=== PATIENT | female | born 1990 | race Caucasian/White ===

== ENCOUNTER 2016-10-25 03:52 | Emergency (ER) | payer SELFPAY ==
[2016-10-25 03:58] VITALS: BP 107/74; PULSE 86; RESP 16; TEMP 98.1; O2SAT 95
--- NOTE | 2016-10-25 04:20 | EDPHY ---
H & P Stated Complaint: rashes on RUE and abd x several days Time Seen by Provider: 10/25/16 04:04 HPI/ROS: CHIEF COMPLAINT: Rash HISTORY OF PRESENT ILLNESS: Patient is a 26-year-old homeless female who comes to the emergency department complaining of a dry scaly rash to her right antecubital region and around her umbilicus. They both began a few weeks ago. She has not had a fever. They are pruritic. No sick contacts. REVIEW OF SYSTEMS: Constitutional: denies: chills, fever, recent illness, recent injury EENTM: denies: blurred vision, double vision, nose congestion Respiratory: denies: cough, shortness of breath Cardiac: denies: chest pain, irregular heart rate, lightheadedness, palpitations Gastrointestinal/Abdominal: denies: abdominal pain, diarrhea, nausea, vomiting, blood streaked stools Genitourinary: denies: dysuria, frequency, hematuria, pain Musculoskeletal: denies: joint pain, muscle pain Skin: See HPI Neurological: denies: headache, numbness, paresthesia, tingling, dizziness, weakness Hematologic/Lymphatic: denies: blood clots, easy bleeding, easy bruising Immunologic/allergic: denies: HIV/AIDS, transplant EXAM: GENERAL: Disheveled, well-nourished and in no acute distress. HEAD: Atraumatic, normocephalic. EYES: Pupils equal round and reactive to light, extraocular movements intact, sclera anicteric, conjunctiva are normal. ENT: TMs normal, nares patent, oropharynx clear without exudates. Moist mucous membranes. NECK: Normal range of motion, supple without lymphadenopathy or JVD. LUNGS: Breath sounds clear to auscultation bilaterally and equal. No wheezes rales or rhonchi. HEART: Regular rate and rhythm without murmurs, rubs or gallops. ABDOMEN: Soft, nontender, normoactive bowel sounds. No guarding, no rebound. No masses appreciated. BACK: No CVA tenderness, no spinal tenderness, step-offs or deformities EXTREMITIES: Normal range of motion, no pitting or edema. No clubbing or cyanosis. NEUROLOGICAL: Cranial nerves II through XII grossly intact. Normal speech, normal gait. 5/5 strength, normal movement in all extremities, normal sensation PSYCH: Normal mood, normal affect. SKIN: Dry scaly rash to right antecubital region and periumbilical. Excoriated , no cellulitis or abscess. Source: Patient Exam Limitations: No limitations - Personal History LMP (Females 10-55): 8-14 Days Ago Current Tetanus/Diphtheria Vaccine: Yes - Medical/Surgical History Hx Asthma: Yes Hx Chronic Respiratory Disease: No Hx Diabetes: No Hx Cardiac Disease: No Hx Renal Disease: No Hx Cirrhosis: No Hx Alcoholism: No Hx HIV/AIDS: Yes Hx Splenectomy or Spleen Trauma: No Other PMH: PMHx: denies. PSHx: 2 c sections, cyst removal - Family History Significant Family History: No pertinent family hx - Social History Smoking Status: Never smoked Alcohol Use: Sober Drug Use: Marijuana Constitutional: Initial Vital Signs Temperature (C) 36.7 C 10/25/16 03:54 Heart Rate 86 10/25/16 03:54 Respiratory Rate 16 10/25/16 03:54 Blood Pressure 107/74 10/25/16 03:54 O2 Sat (%) 95 10/25/16 03:54 O2 Delivery Mode Room Air Allergies/Adverse Reactions: No Known Allergies Allergy (Unverified 10/25/16 03:54) Home Medications: Medication Instructions Recorded Hydrocortisone 0.5% 1 laila TP BID #45 gr 10/25/16 [Hydrocortisone 0.5% cream (*)] Medical Decision Making ED Course/Re-evaluation: The patient appears to have eczema on her abdominal wall and right arm. I will start her on steroid cream and have her follow up with [facility]. Differential Diagnosis: Partial list of the Differential diagnosis considered include but were not limited to; eczema, scabies, contact dermatitis, allergic reaction, fungal infection and although unlikely based on the history and physical exam, I also considered psoriasis, cellulitis, abscess, hernia. I discussed these differential diagnoses and the plan with the patient as well as the usual and expected course. The patient understands that the diagnosis is provisional and that in medicine we are not always correct and that further workup is often warranted. Usual and customary warnings were given. All of the patient's questions were answered. The patient was instructed to return to the emergency department should the symptoms at all worsen or return, otherwise to followup with the physician as we discussed. Departure - Departure Disposition: Home, Routine, Self-Care Clinical Impression: Eczema Qualifiers: Eczema type: unspecified Qualified Code(s): L30.9 - Dermatitis, unspecified Condition: Fair Instructions: Eczema (ED) Referrals: NONE *PRIMARY CARE P,. [Primary Care Provider] - As per Instructions Prescriptions: Hydrocortisone 0.5% [Hydrocortisone 0.5% cream (*)] 1 laila TP BID #45 gr
== END 2016-10-25 04:44 | disposition home or self-care (01) ==
DX: L30.9 Dermatitis, unspecified (principal); J45.909 Unspecified asthma, uncomplicated; B20 Human immunodeficiency virus [HIV] disease